=== PATIENT | male | born 1965 | race African-American/Black ===

== ENCOUNTER 2019-06-09 19:37 | Inpatient (IN) | payer MEDICAID ==
[~2019-06-09] VITALS: Ht 177.8 cm; Wt 81.6 kg
--- NOTE | 2019-06-09 20:05 | NUR ---
OCCULT STOOL POSITIVE EDP INFORMED, URINE AND BLOOD TO LAB.
[2019-06-09 20:26] LABS: BASOPHILS 0.2 % (0-2); HEMOGLOBIN 14.1 g/dL (13.5-17.5); IMMATURE GRANULOCYTES 0.2 % (0-5); LYMPHOCYTES 45.9 % (15-50); MCH 29.9 pg (26.0-34.0); MCHC 32.8 g/dL (31.0-37.0); MCV 91.1 fL (80.0-100.0); MEAN PLATELET VOLUME 11.5 fL (7.4-10.4); MONOCYTES 10.2 % (2-11); NEUTROPHILS 39.5 % (40-80); PLATELET COUNT 180 10x3/uL (130-400); RBC 4.72 10x6/uL (4.20-6.10)
[2019-06-09 20:36] LABS: APPEARANCE CLEAR (CLEAR); COLOR YELLOW (YELLOW)
[2019-06-09 20:37] LABS: BILIRUBIN NEGATIVE (NEGATIVE); GLUCOSE NEGATIVE (NEGATIVE); KETONE NEGATIVE (NEGATIVE); NITRITE NEGATIVE (NEGATIVE); PROTEIN NEGATIVE (NEGATIVE); UROBILINOGEN NORMAL (NORMAL)
[2019-06-09 20:46] LABS: UDS - AMPHET NEGATIVE QUAL (NEGATIVE); UDS - BARB NEGATIVE QUAL (NEGATIVE); UDS - BENZO NEGATIVE QUAL (NEGATIVE); UDS - COCAINE POSITIVE QUAL (NEGATIVE); UDS - OPIATE NEGATIVE QUAL (NEGATIVE); UDS - THC NEGATIVE QUAL (NEGATIVE)
[2019-06-09 20:49] LABS: UDS - PCP NEGATIVE QUAL (NEGATIVE)
[2019-06-09 21:01] LABS: ALBUMIN 3.5 g/dL (3.4-5.0); ALKALINE PHOSPHATASE 75 U/L (46-116); ALT (SGPT) 47 U/L (10-68); AMYLASE - SERUM 101 U/L (25-115); CALC OSMOLALITY 276 mosm/kg (275-300); CARBON DIOXIDE 29.4 mmol/L (21.0-32.0); CHLORIDE - SERUM 106 mmol/L (98-107); CREATININE - SERUM 1.4 mg/dL (0.6-1.3); LIPASE 359 U/L (73-393); POTASSIUM - SERUM 4.2 mmol/L (3.5-5.1); SODIUM 140 mmol/L (136-145); TROPONIN-I < 0.017 ng/mL (0.000-0.060); UREA NITROGEN 14 mg/dL (7-18); eGFR NON AFRICAN AMERICAN 56 mL/min (90-120)
[2019-06-09 21:06] LABS: GLUCOSE 51 mg/dL (74-106)
--- NOTE | 2019-06-09 23:00 | NUR ---
PT ARRIVED TO THE FLOOR BY WHEELCHAIR. ALERT AND ORIENTED. NO SIGNS OF DISTRESS. BREATHING EVEN AND UNLABORED. IV SITE 20G LT AC DRESSING CLEAN DRY AND INTACT. NO SIGNS OF INFECTION. SKIN CLEAN DRY AND INTACT. LUNG SOUNDS CLEAR. BOWEL SOUNDS ACTIVE. NO LOWER LEG SWELLING PRESENT. PT STATES NO PROBLEMS AT THIS TIME. WILL CONTINUE PLAN OF CARE. CALL LIGHT IN REACH. BED LOWERED AND LOCKED. BED RAILS UPX1.
[2019-06-09 23:03] VITALS: BP 143/99; BMI 25.8
[2019-06-10 01:16] VITALS: BP 143/99
[2019-06-10 04:54] VITALS: BP 150/84
[2019-06-10 06:38] LABS: HEMATOCRIT 42.7 % (42.0-54.0); HEMOGLOBIN 13.6 g/dL (13.5-17.5); MCH 28.9 pg (26.0-34.0); MCHC 31.9 g/dL (31.0-37.0); MCV 90.7 fL (80.0-100.0); MEAN PLATELET VOLUME 12.2 fL (7.4-10.4); PLATELET COUNT 185 10x3/uL (130-400); RBC 4.71 10x6/uL (4.20-6.10); RDW 13.2 % (11.5-14.5); WBC 4.3 10x3/uL (4.8-10.8)
[2019-06-10 06:54] LABS: ANION GAP 9.7 mmol/L (8-16); APTT 32.6 SECONDS (22.8-39.4); CALCIUM 8.8 mg/dL (8.5-10.1); CARBON DIOXIDE 26.5 mmol/L (21.0-32.0); CREATININE - SERUM 1.1 mg/dL (0.6-1.3); INR 0.95 (0.85-1.17); MAGNESIUM - SERUM 2.1 mg/dL (1.8-2.4); PHOSPHOROUS 3.8 mg/dL (2.5-4.9); POTASSIUM - SERUM 4.2 mmol/L (3.5-5.1); PROTIME 12.2 SECONDS (11.6-15.0)
--- NOTE | 2019-06-10 07:15 | NUR ---
SPOKE WITH DR AMOR ABOUT PATIENT'S PAIN. NOTIFIED OF FENTANYL PATCH TO LEFT CHEST BUT NO ORDER IN OCT. STATES WILL INCREASE PATCH TO 25MCG FROM 12MCG AND ADD TO OCT.
--- NOTE | 2019-06-10 07:29 | NUR ---
ALERT AND ORIENTED. LUNGS CLEAR BILATERALLY. HEART SOUNDS S1 AND S2 HEARD IN ALL ROGERS. BOWEL SOUNDS ACTIVE X 4. COCCYX AND BUTTOCKS PINK BUT BLANCHABLE. SKIN INTACT. IV TO LEFT AC PATENT WITHOUT REDNESS. LEFT CHEST PORT NOT ACCESSED. TELEMETRY IN PLACE. DENIES NEEDS. BED LOW. FALL PRECAUTIONS IN PLACE. CALL PATEL AND PERSONAL ITEMS IN REACH. WILL CONTINUE TO MONITOR.
--- NOTE | 2019-06-10 07:32 | NUR ---
ALERT AND ORIENTED. LUNGS CLEAR BILATERALLY. HEART SOUNDS S1 AND S2 HEARD IN ALL ROGERS. BOWEL SOUNDS ACTIVE X 4. SKIN INTACT WITHOUT REDNESS. IV TO LEFT AC PATENT WITHOUT REDNESS. DENIES PAIN. DENIES NEEDS. BED LOW. CALL PATEL AND PERSONAL ITEMS IN REACH. WILL CONTINUE TO MONITOR.
[2019-06-10 08:48] VITALS: BP 130/96
[2019-06-10 09:54] VITALS: Ht 177.8 cm; Wt 81.6 kg
[2019-06-10 10:01] LABS: BASOPHILS 0.5 % (0-2); EOSINOPHILS 5.1 % (0-7); LYMPHOCYTES 56.8 % (15-50); MONOCYTES 8.6 % (2-11)
--- NOTE | 2019-06-10 10:41 | NUR ---
PATIENT SLEEPING. WILL CONTINUE TO MONITOR.
--- NOTE | 2019-06-10 10:42 | NUR ---
PATIENT AGREED TO WEAR SCDS. PLACED ON PATIENT.
[2019-06-10] MEDS ORDERED: MIRALAX17 GM PO (12:05)
--- NOTE | 2019-06-10 12:14 | NUR ---
PATIENT AND BROTHER UPSET ABOUT DISCHARGE. TRAY ORDERED STAT PER REQUEST. JUICE GIVEN. PUDDING GIVEN. IV REMOVED FROM LEFT AC WITH TIP INTACT.
--- NOTE | 2019-06-10 12:39 | NUR ---
RESTING IN BED. BROTHER AT BEDSIDE. DENIES NEEDS.
[2019-06-10 12:46] LABS: HEMATOCRIT 44.2 % (42.0-54.0); HEMOGLOBIN 14.4 g/dL (13.5-17.5)
[2019-06-10 12:57] VITALS: BP 150/95
--- NOTE | 2019-06-10 13:33 | NUR ---
DISCHARGE EDUCATION PROVIDED BOTH WRITTEN AND VERBAL. VERBALIZED UNDERSTANDING. DENIES FURTHER QUESTIONS. IV PREVIOUSLY REMOVED WITH TIP INTACT. PATIENT DENIES FURTHER NEEDS. DISCHARGED HOME WITH BROTHER WITH ALL BELONGINGS.
== END 2019-06-10 13:51 | disposition home or self-care (01) | DRG 378 ==
LOC: D.ER 19:37 → D.MS 22:21
PROVIDERS: Family Medicine; ADMIT Internal Medicine Nephrology; ATTEND Internal Medicine Nephrology
DX: K92.2 Gastrointestinal hemorrhage, unspecified (principal); N17.9 Acute kidney failure, unspecified; F17.203 Nicotine dependence unspecified, with withdrawal; E16.2 Hypoglycemia, unspecified; I10 Essential (primary) hypertension; M54.9 Dorsalgia, unspecified; F10.10 Alcohol abuse, uncomplicated; F14.10 Cocaine abuse, uncomplicated